=== PATIENT | female | born 1990 | race Caucasian/White ===

== ENCOUNTER 2019-06-19 12:24 | Emergency (ER) | payer MEDICAID, SELFPAY ==
[2019-06-19 12:30] VITALS: BP 124/74; PULSE 104; RESP 16; TEMP 36.7; O2SAT 99
--- NOTE | 2019-06-19 12:39 | W.ED.GENAD ---
Discharge Plan Disposition Patient Disposition: HOME Condition: Stable Discharge Details Chief Complaint: GenMedical Clinical Impression: Medication refill Primary Care Provider: Amina Maurer ED Provider: Darshana Lee Home Meds and New Rx's Prescriptions: New venlafaxine 37.5 mg tablet 37.5 mg PO DAILY Qty: 30 RF: 0 No Action venlafaxine [Effexor XR] 37.5 mg Capsule,Extended Release 24hr 37.5 mg PO DAILY RF: 0 Discharge Instructions Instructions: Medicine Refill (ED) Additional Instructions: Follow up with primary care provider in 3-5 days. Return to ED sooner if any worsening or concerns. Increase oral fluids. Referrals: Amina Maurer, [employer] [Primary Care Provider] - Medical Decision Making 28-year-old female presents for medication refill she reports she is out of her Effexor 37.5 mg since yesterday. No other complaints. She does have a follow-up appointment on July 16 per patient report. Prescription written for 30 tablets of venlafaxine 37.5 mg HPI General Mode of arrival: ambulatory. Date/Time Provider Initiated Documentation: 06/19/19 12:28. Limitations to Documentation: no limitations. Information obtained by: patient. HPI Narrative: 28-year-old female presents for medication refill. Patient states that she just moved here from [place] and ran out of her Effexor 37.5 mg yesterday. She has a follow-up appointment on July 16. No other complaints. Related Data Home Medications Medication Instructions Recorded Confirmed venlafaxine 37.5 mg PO DAILY #30 tab 06/19/19 venlafaxine [Effexor XR] 37.5 mg PO DAILY 06/19/19 06/19/19 Previous Rx's Medication Instructions Recorded venlafaxine 37.5 mg PO DAILY #30 tab 06/19/19 Allergies Allergy/AdvReac Type Severity Reaction Status Date / Time No Known Allergies Allergy Unverified 06/19/19 12:33 General Stated Complaint: GenMedical ADIA: 5 Review of Systems Narrative: Constitutional: Negative for weight loss, alert and oriented, well groomed, normal body habitus, appears comfortable. HEENT: Denies trauma, headaches, blurry vision, nasal discharge, sore throat, trouble swallowing. Chest: Denies chest pain, palpitations, irregular rhythm, hypertension. Respiratory: Denies Shortness of breath, cough, hemoptysis. GI: Denies abdominal pain, nausea, vomiting, diarrhea, constipation. : Denies dysuria, hematuria, flank pain, rectal bleeding. Neuro: Denies dizziness, blurry vision, weakness, syncope, headache or facial numbness. Hematologic: Denies easy bruising, intolerance to heat or cold, hair loss. PFSH Family History Mother Depression post COPD (chronic obstructive pulmonary disease) Father Hyperlipidemia Hypertension Prostate cancer Melanoma Brother No problems noted. Maternal Grandfather , age 69 No problems noted. Maternal Grandmother , age 53 Ovarian cancer Social History Smoking/Tobacco Use Status: Current-Occasional Tobacco Type: cigarettes Alcohol Intake: current Alcohol Intake frequency: holidays/special occasions only Alcohol type: beer and wine Drug use: Daily Substance use type: marijuana Caregiver/Support person: No Household members: significant other Housing: apartment Communication Needs: None Do you need help understanding health information?: Never Pets and animals: Yes Pets and animals: cat(s) Sexually active: Yes Do you think of yourself as: straight/heterosexual What is your relationship status?: living with partner How often do you talk on the phone with friends or family?: once per week How often do you get together with friends or relatives?: decline to answer How often do you attend protestant or caodaism services?: decline to answer Do you belong to any clubs or organized social groups?: no Panel score (0-1 are the most socially isolated patients): 1 What type of physical activity do you participate in: walking Duration: < 15 minutes/day Frequency: 1-2 times per week Megan/Zoroastrian: None Special megan needs: No Seatbelt use: always Helmet use: Yes Helmet use: always Drive intox or ride w/intox local owner operator truck driver: No Do you feel safe at home: Yes Do you feel safe in your relationship?: Yes Exam Narrative Exam Narrative: Constitutional: Allert and oriented x3. Appears stated age. Normal body habitus. Head: Normocephalic, no trauma. Eyes: Pupils PERRLA, Red reflex noted, EOM's intact. Eyelids symmetrical withour lesions, discharge, or swelling. ENT: Bilateral TM's WNL, External ear normal to inspection, no mastoid TTP, swelling, or erythema, Nasal turbinates WNL, no nasal discharge. Normal dentition, Posterior pharynx WNL, no exudate. Chest: RRR, Normal S1, S2, distal pulses intact. Resp: Lungs clear to auscultation bilaterally, no wheezes, rales, or rhonchi. Musculoskeletal: Normal gait, 5/5 strength to all four extremities. Skin: No suspicious rashes or lesions. Capillary refill ?2 sec. Neurologic: Cranial nerves II-XII intact. Alert and oriented x 3. DTR's intact. Hematologic/Lymphatic: No ecchymosis, no lymphadenopathy. Course Vital Signs Vital signs: Vital Signs Temperature 36.7 C 06/19/19 12:30 Pulse 104 H 06/19/19 12:30 Respiratory Rate 16 06/19/19 12:30 Blood Pressure 124/74 06/19/19 12:30 Pulse Oximetry 99 06/19/19 12:30 Temperature 36.7 C 06/19/19 12:30 Temperature Source Tympanic 06/19/19 12:30 Pulse 104 H 06/19/19 12:30 Respiratory Rate 16 06/19/19 12:30 Respiratory Effort Non-Labored 06/19/19 12:33 Blood Pressure 124/74 06/19/19 12:30 Blood Pressure Position Sitting 06/19/19 12:30 Pulse Oximetry 99 06/19/19 12:30 Oxygen Delivery Method Room Air 06/19/19 12:30 Oxygen Flow Rate 0 06/19/19 12:30 Pain Level 0 06/19/19 12:30
[2019-06-19 12:51] VITALS: BP 124/74; PULSE 104; RESP 16; RESP 18; TEMP 36.7; O2SAT 99
== END 2019-06-19 12:53 | disposition home or self-care (01) ==
PROVIDERS: Emergency Provider Registered Nurse Emergency; PCP Nurse Practitioner
DX: Z76.0 Encounter for issue of repeat prescription (principal)
CPT/HCPCS: 99283; 99281

== ENCOUNTER 2019-06-25 09:57 | Outpatient (CLI) | payer MEDICAID, SELFPAY ==
[2019-06-25 13:08] LABS: Calculated LDL 115 mg/dL (<100); Cholesterol 175 mg/dL (<200); HDL Cholesterol 53 mg/dL (40-60); Triglyceride 38 mg/dL (<150)
== END 2019-06-25 10:17 ==
PROVIDERS: PCP Nurse Practitioner; Visit Provider Nurse Practitioner
DX: Z13.220 Encounter for screening for lipoid disorders (principal)
CPT/HCPCS: 36415; 80061

== ENCOUNTER 2019-08-27 14:26 | Outpatient (REF) | payer MEDICAID, SELFPAY ==
--- NOTE | 2019-08-27 13:40 | PAPFT_PTH ---
PATIENT: DASHAWN LITTLE LOC: [facility] U#:[id number] AGE/SX: 28/F ROOM: RE08/27/[address]: Amina Maurer, PhD [employer] ARCHITECT : 1990 BED: DIS: 08/27/2019 SPEC #: [id number] RECD: 08/28/19 12:10 STATUS: VELMA REBird #: [id number] NICHELLE: 08/27/19 13:[address]: Amina Maurer DEPT: [facility] Cytology RECD BY: Joyce Espinal Tissues: 1 - CX/ENDOCX FOR PAP SMEARS Procedures: PAP THIN PREP/[facility] Screening Comments: [id number] (CHLAMYDIA/GC)
[2019-08-31 15:42] LABS: Chlamydia Result Negative (Negative); GC Result Negative (Negative)
== END 2019-08-27 14:46 ==
LOC: LBN 14:26
PROVIDERS: PCP Nurse Practitioner; Visit Provider Nurse Practitioner
DX: Z12.4 Encounter for screening for malignant neoplasm of cervix (principal); Z11.3 Encounter for screening for infections with a predominantly sexual mode of transmission; Z11.51 Encounter for screening for human papillomavirus (HPV)
CPT/HCPCS: 87491; 87591; 88142